=== PATIENT | female | born 1995 | race African-American/Black ===

== ENCOUNTER 2016-09-27 05:50 | Emergency (ER) | payer BC ==
[~2016-09-27] VITALS: Ht 160 cm; Wt 78.9 kg
[2016-09-27 06:09] VITALS: BP 114/71
[2016-09-27] MEDS ORDERED: birth control pills (06:09)
[2016-09-27] MEDS ORDERED: Acetaminophen 500mg (ES) tab ORAL ONE (07:00)
[2016-09-27] MEDS ORDERED: Ketorolac 60mg Inj IM ONE (07:00)
[2016-09-27 07:07] VITALS: BP 118/75
[2016-09-27 07:21] LABS: BASOPHILS % (AUTO) 0.7 % (0.0-2.0); EOSINOPHILS % (AUTO) 1.3 % (0.0-3.0); LYMPHOCYTES % (AUTO) 22.1 % (20.0-45.0); MEAN CORPUSCULAR HEMOGLOBIN 31.3 PG (27.0-31.0); MEAN CORPUSCULAR HGB CONC 33.5 G/DL (32.0-36.0); MEAN CORPUSCULAR VOLUME 94 FL (80-99); MEAN PLATELET VOLUME 6.5 FL (6.5-10.1); MONOCYTES % (AUTO) 7.7 % (1.0-10.0); NEUTROPHILS % (AUTO) 68.2 % (45.0-75.0); PLATELET COUNT 245 K/UL (150-450); RED BLOOD COUNT 4.12 M/UL (4.20-5.40); RED CELL DISTRIBUTION WIDTH 12.1 % (11.6-14.8); WHITE BLOOD COUNT 9.2 K/UL (4.8-10.8)
--- NOTE | 2016-09-27 07:45 | Emergency Room Report ---
History of Present Illness General Chief Complaint: Pain Source: Patient Present Illness HPI Patient is a 21-year-old female who presented after increased pain to her left great toe. The patient cannot recall any recent trauma. She reported having gradual onset of swelling. She denies any fever. She denied any other locations of pain. Patient had increased difficulty with ambulation an increase pain. Allergies: Coded Allergies: No Known Allergies (Unverified , 09/27/16) Patient History Past Medical History: see triage record Last Menstrual Period: Sep Reviewed Nursing Documentation: PMH: Agreed, PSxH: Agreed Nursing Documentation-PMH Past Medical History: No Stated History Review of Systems All Other Systems: negative except mentioned in HPI Physical Exam Vital Signs Date Time Temp Pulse Resp B/P Pulse Ox O2 Delivery O2 Flow Rate FiO2 09/27/16 06:05 97.3 83 19 114/71 100 Room Air General Appearance: well appearing, no apparent distress, alert, GCS 15 Head: normocephalic, atraumatic ENT: hearing grossly normal, normal voice Neck: full range of motion, supple Respiratory: no respiratory distress, speaking full sentences Cardiovascular #1: normal peripheral pulses, regular rate, rhythm Gastrointestinal: normal inspection, non tender Musculoskeletal: no calf tenderness, inflammation, swelling - left great toe Neurologic: alert, oriented x3, normal gait Psychiatric: mood/affect normal Skin: no rash Medical Decision Making Diagnostic Impression: Primary Impression: Toe sprain ER Course The patient presented for toe pain. Differential diagnosis included was not limited to fracture, cellulitis, contusion, gout among others.Because of complexity of patient's case laboratory testing and imaging studies were ordered. X-ray imaging of the left great toe 3 views read by radiology showed normal bony alignment without or fracture there is soft tissue swelling noted.Laboratory testing showed normal CBC. The patient initially denied any trauma however she subsequently stated that she hit her great toe on a sofa. The patient is advised to follow up with primary care doctor in 1-2 days. Patient is advised to return if any worsening condition or if any changes in status that are concerning. Labs Test 09/27/16 06:35 White Blood Count 9.2 K/UL (4.8-10.8) Red Blood Count 4.12 M/UL (4.20-5.40) Hemoglobin 12.9 G/DL (12.0-16.0) Hematocrit 38.6 % (37.0-47.0) Mean Corpuscular Volume 94 FL (80-99) Mean Corpuscular Hemoglobin 31.3 PG (27.0-31.0) Mean Corpuscular Hemoglobin Concent 33.5 G/DL (32.0-36.0) Red Cell Distribution Width 12.1 % (11.6-14.8) Platelet Count 245 K/UL (150-450) Mean Platelet Volume 6.5 FL (6.5-10.1) Neutrophils (%) (Auto) 68.2 % (45.0-75.0) Lymphocytes (%) (Auto) 22.1 % (20.0-45.0) Monocytes (%) (Auto) 7.7 % (1.0-10.0) Eosinophils (%) (Auto) 1.3 % (0.0-3.0) Basophils (%) (Auto) 0.7 % (0.0-2.0) Last Vital Signs Date Time Temp Pulse Resp B/P Pulse Ox O2 Delivery O2 Flow Rate FiO2 09/27/16 07:07 98.0 79 19 118/75 100 Room Air Status: improved Disposition: HOME, SELF-CARE Condition: Stable Scripts Acetaminophen With Codeine (T#3) (TYLENOL #3 TAB*) Y Tab 1 TAB ORAL Q8H Y for For Pain, #20 TAB Prov: Willian Norton 09/27/16 Ibuprofen* (MOTRIN*) 600 Mg Tablet 600 MG ORAL Q8H Y for For Pain, #30 TAB 0 Refills Prov: Willian Norton 09/27/16 Referrals: NON PHYSICIAN (PCP) Patient Instructions: Arthritis Willian Norton Sep 27, 2016 07:45
[2016-09-27] MEDS ORDERED: IBUPROFEN600 MG ORAL (07:49)
[2016-09-27] MEDS ORDERED: ACETAMINOPHEN-1 EAC1 ORAL (07:49)
[2016-09-27 08:01] VITALS: BP 124/74
--- NOTE | 2016-09-27 08:38 | Diagnostic Imaging Report ---
Indications: Left foot pain Technique: 3 views of the left foot Findings: Comparison: None. No fracture, dislocation, lytic destruction, periosteal reaction, surrounding soft tissue swelling, or other acute changes are demonstrated. No deformity, alignment abnormality, arthritic change, soft tissue calcification, or other chronic changes are demonstrated. IMPRESSION: Negative left foot series.
== END 2016-09-27 08:03 | disposition home or self-care (01) ==
LOC: EMR 06:30
DX: S93.502A Unspecified sprain of left great toe, initial encounter (principal); X58.XXXA Exposure to other specified factors, initial encounter; Y92.9 Unspecified place or not applicable
CPT/HCPCS: 36415; 84550; 85025; 96372; 99283